=== PATIENT | male | born 1985 | race Caucasian/White ===

== ENCOUNTER 2022-10-25 16:13 | Emergency (ER) | payer OTHER ==
[2022-10-25 16:25] VITALS: BP 152/93; PULSE 91; RESP 18; TEMP 98; BMI 29.5
[2022-10-25 20:17] LABS: BASO % 0.6 % (0-2.0); EOS % 2.5 % (0-4.5); HEMATOCRIT 43.5 % (35.4-49); HEMOGLOBIN 14.4 GM/dL (11.7-16.9); LYMPH % 36.6 % (8-40); MCH 27.4 pg (25.7-33.7); MCHC 33.1 g/dl (32.0-35.9); MEAN CELL VOLUME 82.6 fl (80-96); MEAN PLT VOLUME 7.9 fl (7.5-11.1); MONO % 7.6 % (3.8-10.2); NEUT % 52.7 % (42.8-82.8); PLATELET COUNT 303 10^3/uL (134-434); RBC 5.27 M/mm3 (4.00-5.60); RDW 13.1 % (11.9-15.9); WHITE BLOOD COUNT 10.4 K/mm3 (4.0-10.0)
[2022-10-25 20:50] LABS: CALCIUM 9.1 mg/dL (8.5-10.1)
[2022-10-25 20:51] LABS: ALBUMIN 3.8 g/dl (3.4-5.0); BLOOD UREA NITROGEN 14.9 mg/dL (7-18)
[2022-10-25 20:54] LABS: CREATININE 0.8 mg/dL (0.55-1.3)
[2022-10-25 20:55] LABS: BILIRUBIN,TOTAL 0.4 mg/dL (0.2-1)
[2022-10-25 20:56] LABS: TOT PROT 7.5 g/dl (6.4-8.2)
[2022-10-25 21:08] LABS: URINE APPEARANCE CLEAR; URINE BILIRUBIN NEGATIVE (NEGATIVE); URINE COLOR YELLOW; URINE GLUCOSE (UA) NEGATIVE (NEGATIVE); URINE KETONE NEGATIVE (NEGATIVE); URINE LEUK ESTERASE NEGATIVE (NEGATIVE); URINE NITRITE NEGATIVE (NEGATIVE); URINE PROTEIN NEGATIVE (NEGATIVE)
== END 2022-10-25 21:40 | disposition home or self-care (01) ==
LOC: JER 16:13
DX: R07.9 Chest pain, unspecified (principal); I10 Essential (primary) hypertension; M79.601 Pain in right arm
CPT/HCPCS: 36415; 80053; 81003; 84484; 85025; 93005; 93010; 99284-25